=== PATIENT | male | born 1995 | race Caucasian/White ===

== ENCOUNTER 2023-03-06 09:05 | Outpatient (REF) | payer BC, SELFPAY | END 2023-03-06 09:06 | disposition home or self-care (01) | LOC: HO.BBR 09:05 | PROVIDERS: PCP Nurse Practitioner Family; Visit Provider Internal Medicine Hematology & Oncology | DX: Z13.89 Encounter for screening for other disorder (principal) ==

== ENCOUNTER 2023-06-05 10:05 | Outpatient (REF) | payer BC, SELFPAY | END 2023-06-05 10:06 | disposition home or self-care (01) | LOC: HO.BBR 10:05 | PROVIDERS: Visit Provider Internal Medicine Hematology & Oncology | DX: Z13.89 Encounter for screening for other disorder (principal) ==

== ENCOUNTER 2023-09-04 10:04 | Outpatient (REF) | payer BC, SELFPAY | END 2023-09-04 10:05 | disposition home or self-care (01) | LOC: HO.BBR 10:04 | PROVIDERS: PCP Nurse Practitioner Family; Visit Provider Internal Medicine Hematology & Oncology | DX: Z13.89 Encounter for screening for other disorder (principal) ==